=== PATIENT | female | born 2005 | race Caucasian/White ===

== ENCOUNTER 2023-12-19 17:41 | Observation (INO) ==
[2023-12-19] MEDS ORDERED: SODIUM CHLORIDE 0.9% 1,000 ML IV STA (18:11)
[2023-12-19] MEDS ORDERED: ALBUT/IPRATROP 3MG/0.5MG NEB 3 ML VIAL NEB ONE (18:11)
[2023-12-19] MEDS ORDERED: dexAMETHasone**PF** 10 MG/ML VIAL IV ONE (18:11)
[2023-12-19] MEDS ORDERED: MAGNESIUM SULFATE / D5W 1 GM/100 ML BAG IV STA (18:13)
--- NOTE | 2023-12-19 18:22 | Emergency Department Note ---
Impression & Plan Asthma with acute exacerbation ED Provider Note NAME: RAULITO SADLER AGE: 18 SEX: F : 2005 ARRIVES VIA: Walk-In INFORMANT: Patient, ED PROVIDER(S): Augustin Herrera DO CHIEF COMPLAINT: Shortness of breath HPI: The patient is a 18-year-old female who presented to the emergency department for an evaluation of difficulty breathing. The patient has a history of asthma. She states that she started with upper respiratory infection which led to her having multiple exacerbations of asthma. She had multiple visits to the emergency department while she was on [place] break. She started having symptoms 3 days ago. She has been using her inhaler but unfortunately started to worsen. She presented to the emergency department for further evaluation. She does complain of muscle aches and pain. She denies having any leg swelling. She does complain of sore throat and headache. The patient took her nebulizer treatment prior to coming to the emergency department today. She denies having any hemoptysis. ROS: See above HPI for pertinent positives & negatives. A total of 10 systems reviewed and were otherwise negative. PAST MEDICAL HISTORY: See Below PAST SURGICAL HISTORY: See Below FAMILY HISTORY: See Below SOCIAL HISTORY: See Below HOME MEDICATIONS: See Below ALLERGIES: See Below VITALS: See Below PHYSICAL EXAMINATION: GENERAL: Patient is awake alert in no acute distress patient is resting comfortably and showing no signs of anxiety EYES: The conjunctivae are clear. The pupils are round and reactive. EARS, NOSE, MOUTH AND THROAT: The nose is without any evidence of any deformity. Mucous membranes are moist. NECK: The neck is nontender and supple. RESPIRATORY: Diminished breath sounds are noted throughout. There is increased expiratory phase noted. Wheezing was noted in both upper lung whittaker. There is mild conversational dyspnea CARDIOVASCULAR: Regular rate and rhythm noted there no murmurs rubs or gallops normal S1 normal S2. GASTROINTESTINAL: The abdomen is soft. Abdomen is nontender. MUSCULOSKELETAL/EXTREMITIES: There is no evidence of gross deformity full range of motion is noted in the hips and shoulders. SKIN: There is no obvious evidence of any rash. There are no petechiae, pallor or cyanosis noted. There is no calf tenderness NEUROLOGIC: Patient is awake alert and oriented x3 MEDICAL DECISION MAKING: The patient is a 18-year-old female who presented to the emergency department for an evaluation of difficulty breathing. The patient has a history of asthma. The patient was seen multiple times over [facility] for similar episodes. She was treated in the emergency department. She was improved on the previous visits but tonight when she came to our emergency department she seems to have continued symptoms. Her physical exam does appear to be consistent with bronchospasm. She was treated with a bronchodilator as well as steroids. She was reevaluated multiple times. I discussed the patient's laboratory and radiographic studies with her. The patient has continued symptoms especially with exertion. For this reason I discussed her condition with the on-call [facility]. They have agreed to evaluate the patient in the emergency department for further management and disposition. Triage Nursing notes reviewed. Prior medical records reviewed Vital Signs: reviewed and remarkable for tachycardia and elevated blood pressure. Differential diagnosis: Reactive airway disease, pneumonia, pneumothorax, COPD, CHF, infections, cardiac ischemia, pulmonary embolism, musculoskeletal, gastrointestinal, as well as other pathologies. ER treatment provided: See below Diagnostics interpreted by me: ECG: EKG was obtained in the emergency department. My interpretation is sinus tachycardia 109 bpm. There is no ectopy. Nonspecific T wave abnormalities were noted. This was compared to a tracing from December 16, 2021. No changes were noted. Cardiac Monitoring: An order was placed for continuous cardiac monitoring. The monitor shows a rate of 114 bpm with sinus tachycardia. Laboratory studies: As stated above and show below. Imaging studies: See below. Radiographic imaging was reviewed by myself Consultation(s): Dr. Santoyo was on-call for the [facility] group. He was notified about the patient. ED COURSE: Procedures: none Critical Care: I have personally spent greater than 40 minutes of critical care time in the direct management of this patient. This includes bedside care, interpretation of diagnostic studies, and testing, discussion with consultants, patient, and family members, and other required patient management activities. This 40 minutes is in excess of all separately billable procedures. Past Med/Surg History Medical History Asthma Chronic cough Allergic rhinitis with postnasal drip History of COVID-19 COVID Family History Denies family history of Diabetes Heart disease Lung disease Cancer Asthma Social History Smoking Status: Never smoker Hx Alcohol Use: No Hx Substance Use: No Preferred Language: Upper Sorbian Feels Safe at Home: Yes Allergies Allergies Allergy/AdvReac Type Severity Reaction Status Date / Time No Known Allergies Allergy Verified 12/19/23 21:11 Home Meds Home Medications Medication Instructions Recorded Confirmed fluticasone propionate 50 2 spray intranasal DAILY 12/06/21 12/19/23 mcg/actuation nasal spray,suspension guaifenesin 600 mg tablet, 600 mg PO QAM 12/19/23 12/19/23 extended release 12 hr (Mucinex) norgestimate 0.25 mg-ethinyl 1 tab PO QPM 12/19/23 12/19/23 estradiol 35 mcg tablet (Seble) spironolactone 50 mg tablet 50 mg PO BID 12/19/23 12/19/23 Previous Rx's Medication Instructions Recorded albuterol sulfate 0.63 mg/3 mL 0.63 mg (3 mL) inhalation QID PRN 12/24/21 solution for nebulization shortness of breath or wheezing #90 mL albuterol sulfate 90 mcg/actuation 2 puff inhalation Q4 PRN Shortness 12/24/21 aerosol inhaler Of Breath Or Wheezing #8.5 grams Results & Data (ED) Vital Signs Vital Signs - 24 hr 12/19/23 18:00 12/19/23 18:31 12/19/23 18:31 Temperature 36.9 C Temperature Source Temporal Artery Scan Pulse Rate 113 H Pulse Rate [Right Finger] 105 H Respiratory Rate 19 20 Respiratory Effort / Characteristics Non-Labored Spontaneous Spontaneous Respiratory Depth Normal Respiratory Pattern Regular Blood Pressure 142/88 H Blood Pressure Mean 106 Pulse Oximetry 93 92 88 L Oxygen Delivery Method Room Air Room Air Room Air Sepsis Recent Fever Within 48 Hours No Sepsis New/Unexplained Change in Mental Status N/A Sepsis Action Taken by Nursing No Action Required 12/19/23 18:31 12/19/23 18:32 Temperature Temperature Source Pulse Rate 114 H Pulse Rate [Right Finger] Respiratory Rate Respiratory Effort / Characteristics Respiratory Depth Respiratory Pattern Blood Pressure Blood Pressure Mean Pulse Oximetry 88 L 94 Oxygen Delivery Method Room Air Nebulizer Sepsis Recent Fever Within 48 Hours Sepsis New/Unexplained Change in Mental Status Sepsis Action Taken by Halfway Medications Current Medication List: was personally reviewed by me Laboratory Data Attestation: I reviewed the patient's lab results. 12/19/23 18:21 12/19/23 18:21 Lab Results 12/19/23 Range/Units 18:21 WBC 9.77 (4.8-10.8) K/ul RBC 4.63 (4.20-5.40) M/uL Hgb 13.6 (12.0-16.0) g/dl Hct 38.9 (37.0-47.0) % MCV 84.0 (80.0-100.0) fL MCH 29.4 (25.0-34.0) pg MCHC 35.0 (32.0-36.0) g/dL RDW Std Deviation 41.1 (36.4-46.3) fL RDW Coeff of Les 13.3 (11.5-14.5) % Plt Count 252 (130-400) K/uL MPV 9.7 (9.4-12.4) fL Immature Gran % (Auto) 0.2 % Neut % (Auto) 71.7 % Lymph % (Auto) 16.7 % [place] % (Auto) 6.0 % Eos % (Auto) 4.7 % Baso % (Auto) 0.7 % Neut # (Auto) 7.00 H (1.40-6.50) K/uL Lymph # (Auto) 1.63 (1.20-3.40) K/uL [place] # (Auto) 0.59 (0.11-0.59) K/uL Eos # (Auto) 0.46 (0.00-0.50) K/uL Baso # (Auto) 0.07 (0.00-0.20) K/uL Immature Gran # (Auto) 0.02 (0.01-0.20) K/uL Sodium 140 (136-145) mmol/L Potassium 3.5 (3.5-5.1) mmol/L Chloride 109 H (98-107) mmol/L Carbon Dioxide 22 (21-32) mmol/L Anion Gap 9 (3-11) BUN 7 (6-23) mg/dl Creatinine 0.92 (0.6-1.2) mg/dl Est Cr Clr Drug Dosing 80.1 ml/min Est GFR ( Amer) 103.9 ml/min Est GFR (Non-Af Amer) 89.6 ml/min BUN/Creatinine Ratio 7.6 L (10-20) Glucose 95 (70-99(Fasting)) mg/dl Calcium 9.1 (8.6-10.3) mg/dl Troponin I High Sens < 2.3 (0-14) pg/ml HCG, Qual Negative (Negative) Adenovirus (PCR) Not Detected (NotDetected) B. pertussis DNA (PCR) Not Detected (NotDetected) B.parapertussis DNA PCR Not Detected (NotDetected) C. pneumoniae DNA (PCR) Not Detected (NotDetected) Coronavirus OC43 (PCR) Not Detected (NotDetected) Coronavirus HKU1 (PCR) Not Detected (NotDetected) Coronavirus 229E (PCR) Not Detected (NotDetected) SARS-CoV-2 (PCR) Not Detected (NotDetected) Coronavirus NL63 (PCR) Not Detected (NotDetected) Human Metapneumovir PCR Not Detected (NotDetected) Influenza Type A (PCR) Not Detected (NotDetected) Influenza Type B (PCR) Not Detected (NotDetected) M. pneumoniae (PCR) Not Detected (NotDetected) Parainfluenza 1 (PCR) Not Detected (NotDetected) Parainfluenza 2 (PCR) Not Detected (NotDetected) Parainfluenza 3 (PCR) Not Detected (NotDetected) Parainfluenza 4 (PCR) Not Detected (NotDetected) RSV (PCR) Not Detected (NotDetected) Entero/Rhino (PCR) DETECTED A* (NotDetected) Administered Medications Discontinued Medications Albuterol (Albut/Ipratrop 3mg/0.5mg Neb 3 Ml Vial) 12 ml NEB ONE ONE; Protocol Stop: 12/19/23 18:12 Last Admin: 12/19/23 18:31 Dose: 12 ml Documented By: ANSON Dexamethasone Sodium Phosphate (DexamethasonePf 10 Mg/Ml Vial) 10 mg IV NOW ONE Stop: 12/19/23 18:12 Last Admin: 12/19/23 18:27 Dose: 10 mg Documented By: ML Magnesium Sulfate/Dextrose (Magnesium Sulfate / D5w) 1 gm in 100 mls @ 100 mls/hr IV NOW STA Stop: 12/19/23 19:12 Last Infusion: 12/19/23 19:29 Dose: Infused Documented By: Admin: 12/19/23 18:28 Dose: 100 mls/hr Documented By: ML Sodium Chloride (Nss) 1,000 mls @ 999 mls/hr IV .Q1H1M STA Stop: 12/19/23 19:11 Last Infusion: 12/19/23 19:29 Dose: Infused Documented By: Admin: 12/19/23 18:27 Dose: 999 mls/hr Documented By: ML Imaging Data Attestation: I personally reviewed and interpreted this imaging study as follows: My Impression: 1 view chest x-ray was obtained in the emergency department. My interpretation is no free air or definite infiltrate, final report below. Radiologist's Impression: Chest X-Ray 12/19/23 18:11 XR chest 1V portable HISTORY: 18 years-old Female dyspnea acute shortness of breath COMPARISON: 12/16/2021 TECHNIQUE: AP view of the chest FINDINGS: Cardiomediastinal and hilar silhouettes are within normal limits. No pneumothorax, pleural effusion or airspace consolidation. The bones appear grossly intact. IMPRESSION: No acute process. ACT 112: Negative or not required by law. The above report was generated using voice recognition software. It may contain grammatical, syntax or spelling errors. Electronically signed by: Alexander Feliciano M.D. 12/19/2023 6:46 PM Discharge Plan Visit Data Chief Complaint: Asthma Stated Complaint: FLU LAST MONTH, SOB/ASTHMA, WEEZING, SORE THROAT ED Provider: Augustin Herrera Discharge Problem: Asthma with acute exacerbation Patient Disposition: Being Evaluated by Hospitalist Forms Stand Alone Forms: My [facility] Prescriptions Prescriptions: No Action albuterol sulfate 90 mcg/actuation HFA aerosol inhaler 2 puff INHALATION Q4 PRN (Reason: Shortness Of Breath Or Wheezing) Qty: 8.5 3RF albuterol sulfate 0.63 mg/3 mL solution for nebulization 0.63 mg inhalation QID PRN (Reason: shortness of breath or wheezing) Qty: 90 3RF fluticasone propionate 50 mcg/actuation spray,suspension 2 spray INTRANASAL DAILY norgestimate-ethinyl estradiol [Seble] 0.25-35 mg-mcg Tablet 1 tab PO QPM spironolactone 50 mg Tablet 50 mg PO BID guaifenesin [Mucinex] 600 mg Tablet Extended Release 12hr 600 mg PO QAM Referrals Referrals: Garrison Kirkland CRNP [Outside Practitioners] - Discharge Problem: Asthma with acute exacerbation Qualifiers: Asthma severity: moderate Asthma persistence: unspecified Qualified Code(s): J 45.901 - Unspecified asthma with (acute) exacerbation
[2023-12-19 18:47] LABS: Basophils # (auto) 0.07 K/uL (0.00-0.20); Basophils % (auto) 0.7 %; Eosinophils # (auto) 0.46 K/uL (0.00-0.50); Eosinophils % (auto) 4.7 %; Hematocrit (blood only) 38.9 % (37.0-47.0); Hemoglobin 13.6 g/dl (12.0-16.0); Immature Granulocytes # (auto) 0.02 K/uL (0.01-0.20); Immature Granulocytes % (auto) 0.2 %; Lymphocytes # (auto) 1.63 K/uL (1.20-3.40); Lymphocytes % (auto) 16.7 %; Mean Corpuscular Hemoglobin 29.4 pg (25.0-34.0); Mean Platelet Volume 9.7 fL (9.4-12.4); Monocytes # (auto) 0.59 K/uL (0.11-0.59); Neutrophils % (auto) 71.7 %; Platelet Count 252 K/uL (130-400); RDW Coefficient of Variation 13.3 % (11.5-14.5); RDW Standard Deviation 41.1 fL (36.4-46.3); Red Blood Count 4.63 M/uL (4.20-5.40); White Blood Count 9.77 K/ul (4.8-10.8)
--- NOTE | 2023-12-19 18:48 | XRay Report ---
XR chest 1V portable HISTORY: 18 years-old Female dyspnea acute shortness of breath COMPARISON: 12/16/2021 TECHNIQUE: AP view of the chest FINDINGS: Cardiomediastinal and hilar silhouettes are within normal limits. No pneumothorax, pleural effusion o r airspace consolidation. The bones appear grossly intact. IMPRESSION: No acute process. ACT 112: Negative or not required by law. The above report was generated using voice recognition software. It may contain grammatical, syntax o r spelling errors. Electronically signed by: Alexander Feliciano M.D. 12/19/2023 6:46 PM
[2023-12-19 19:01] LABS: Anion Gap 9 (3-11); BUN Creatinine Ratio 7.6 (10-20); Blood Urea Nitrogen 7 mg/dl (6-23); Calcium 9.1 mg/dl (8.6-10.3); Carbon Dioxide 22 mmol/L (21-32); Chloride 109 mmol/L (98-107); Creatinine Clr Calc Pharmacy 80.1 ml/min; Est GFR (African American) 103.9 ml/min; Est GFR (Non-African American) 89.6 ml/min; Glucose 95 mg/dl (70-99(Fasting)); Potassium 3.5 mmol/L (3.5-5.1); Sodium 140 mmol/L (136-145)
[2023-12-19 19:05] LABS: Pregnancy Test, Serum Negative (Negative)
[2023-12-19 19:07] LABS: Troponin I High Sensitivity < 2.3 pg/ml (0-14)
[2023-12-19 19:29] LABS: Adenovirus PCR Not Detected (NotDetected); Bordetella parapertussis PCR Not Detected (NotDetected); Bordetella pertussis PCR Not Detected (NotDetected); Chlamydia pneumoniae PCR Not Detected (NotDetected); Coronavirus 229E PCR Not Detected (NotDetected); Coronavirus CoV-2 (COVID19)PCR Not Detected (NotDetected); Coronavirus HKU1 PCR Not Detected (NotDetected); Coronavirus NL63 PCR Not Detected (NotDetected); Coronavirus OC43PCR Not Detected (NotDetected); Human Metapneumovirus PCR Not Detected (NotDetected); Influenza A PCR Not Detected (NotDetected); Influenza B PCR Not Detected (NotDetected); Mycoplasma pneumoniae PCR Not Detected (NotDetected); Parainfluenza Virus 1 PCR Not Detected (NotDetected); Parainfluenza Virus 2 PCR Not Detected (NotDetected); Parainfluenza Virus 3 PCR Not Detected (NotDetected); Parainfluenza Virus 4 PCR Not Detected (NotDetected); Respiratory Syncytial VirusPCR Not Detected (NotDetected)
[2023-12-19 19:45] LABS: Rhinovirus/Enterovirus PCR DETECTED (NotDetected)
[2023-12-19] MEDS ORDERED: AZITHROMYCIN 500 MG in DEXTROSE 5% 250 ML IV STA (21:38)
[2023-12-19] MEDS ORDERED: ALBUT/IPRATROP 3MG/0.5MG NEB 3 ML VIAL NEB STA (21:38)
[2023-12-19] MEDS ORDERED: guaiFENesin 600 MG TABCR PO ONE (21:39)
--- NOTE | 2023-12-19 21:43 | History & Physical Report ---
Date of Service December 19, 2023 Assessment & Plan (1) Asthma with acute exacerbation: (2) Allergic rhinitis with postnasal drip: (3) Chronic cough: (4) Upper airway cough syndrome: (5) Acute bronchitis due to Rhinovirus: (6) History of influenza: (7) History of COVID-19: (8) Eosinophilia: Plan Asthma with acute exacerbation/current rhinovirus infection/influenza 11-09-2023/COVID-19 /history of eosinophilia/upper airway cough syndrome/allergic rhinitis- Patient with recurrent infections, unclear if she has cleared any of these previous infections completely and been back to baseline She just completed 2 courses of antibiotics and prednisone while at home over [place] break Present testing for [employer] is positive for rhinovirus/enterovirus She was seen by pulmonology Dr. Peralta on 12/16/2021, and at that time was on Wixela, Singulair, fexofenadine and Flonase From the ED she received the followin mL DuoNeb, dexamethasone 10 mg IV, magnesium sulfate 1 g IV and normal saline 1 L Continue Flonase Start Singulair 10 mg every morning, Loratadine 10 mg every morning, Pulmicort Respules 0.5 mg inhaled twice daily, Increase guaifenesin to 1200 mg p.o. twice daily from 1 600 mg every morning DuoNebs 4 times daily, and every 2 hours as needed Azithromycin 500 mg IV daily Methylprednisolone 40 mg IV every 8 hours Send RAST testing for [place] panel and food panel Consult Dr. Peralta Low phosphorus- Phosphorus 1.0 K-Phos 30 mmol IV x 1 History of Present Illness Chief Complaint: The patient presents to the emergency department with complaint of worsening difficulty breathing over the past 3 days, after finishing 2 courses of prednisone and antibiotics Primary Care Provider: [facility] The patient is a 18-year-old female with a past medical history including allergic rhinitis with postnasal drip, chronic cough, asthma, upper airway cough syndrome, eosinophilia, COVID-19 12/18, influenza virus infection 11/09/2023. She reports that over [place] break while at home she was in the emergency department there several times, has just completed 2 courses of prednisone and antibiotics. After 3 days off of these medications, her breathing has worsened again. In the emergency department this evening [employer] testing was positive for rhinovirus. She reports some improvement in symptoms after emergency department treatment with hour-long DuoNeb, dexamethasone 10 mg IV, magnesium sulfate 1 g IV and normal saline 1 L IV fluid bolus Allergies Allergy/AdvReac Type Severity Reaction Status Date / Time No Known Allergies Allergy Verified 12/19/23 21:11 Home Medications Medication Instructions Recorded Confirmed Type fluticasone propionate 50 2 spray intranasal DAILY 12/06/21 12/19/23 History mcg/actuation nasal spray,suspension albuterol sulfate 0.63 mg/3 mL 0.63 mg (3 mL) inhalation QID PRN 12/24/21 12/19/23 Rx solution for nebulization shortness of breath or wheezing #90 mL albuterol sulfate 90 mcg/actuation 2 puff inhalation Q4 PRN Shortness 12/24/21 12/19/23 Rx aerosol inhaler Of Breath Or Wheezing #8.5 grams guaifenesin 600 mg tablet, 600 mg PO QAM 12/19/23 12/19/23 History extended release 12 hr (Mucinex) norgestimate 0.25 mg-ethinyl 1 tab PO QPM 12/19/23 12/19/23 History estradiol 35 mcg tablet (Seble) spironolactone 50 mg tablet 50 mg PO BID 12/19/23 12/19/23 History Past Med/Surg History Medical History (Updated 12/20/23 @ 04:52 by Dewayne Krueger MD) Eosinophilia Asthma Chronic cough Allergic rhinitis with postnasal drip History of COVID-19 COVID Family History Denies family history of Diabetes Heart disease Lung disease Cancer Asthma Social History Smoking Status: Never smoker Second Hand Exposure: No; Do You Dip or Chew Tobacco: No; Hx Alcohol Use: No Hx Substance Use: No Preferred Language: Malay Communication Ability: Effective Supervising Editor Trailer Required: No Beliefs That Will Affect Care: None Current Living Situation: Alone Other Information That Helps Us Care for You: No Feels Safe at Home: Yes Safety Concerns: Feels Safe At This Time Review of Systems Review of Systems: The patient denies chest pain, palpitations, lower extremity swelling, fevers, chills, sweats, weight change, fatigue, nausea, vomiting, diarrhea , constipation, abdominal pain, pelvic pain, blood in urine or stool, dysuria, urinary frequency or urgency, lightheadedness, dizziness, headache, memory loss, loss of consciousness, rash, abnormal bruising or bleeding, imbalance, focal or generalized weakness, numbness or tingling in arms or legs, generalized arthralgias or myalgias, back or neck pain, or night sweats. The review of systems is otherwise negative other than for that already noted above, and at least 10 systems have been reviewed. Physical Exam Physical Exam: The patient is awake, alert and oriented 3, well developed and well nourished, normocephalic and atraumatic, lying in bed and in no acute distress. HEENT--PERRL, EOMI, mucous membranes and oropharynx normal Neck--supple. No JVD. No bruits. Thyroid normal, trachea midline, no ad enopathy. Heart--normal S1 and S2. No murmurs, rubs or gallops. Lungs--expiratory wheezes bilaterally, with coarse breath sound. no respiratory distress, no accessory muscle use. Abdomen--normal bowel sounds and soft. Nontender. Nondistended, no hernias or masses, no organomegaly. Extremities--no cyanosis or clubbing. No edema. Dermatologic--normal skin turgor, normal color, no abnormal lymph nodes, no rash. Neurologic--cranial nerves II through XII grossly intact. Rheumatologic--normal range of motion. Psychiatric--normal affect. Results & Data Results & Data Vital Signs (Past 12 Hours) Vital Signs Temp Pulse Pulse Resp BP Pulse Ox O2 Del Method 12/19/23 18:32 94 Nebulizer 12/19/23 18:31 114 H 88 L Room Air 12/19/23 18:31 88 L Room Air 12/19/23 18:31 105 H 20 92 Room Air 12/19/23 18:00 36.9 C 113 H 19 142/88 H 93 Room Air Laboratory Results Laboratory Results WBC 8.17 K/ul (4.8-10.8) 12/20/23 03:19 RBC 4.26 M/uL (4.20-5.40) 12/20/23 03:19 Hgb 12.6 g/dl (12.0-16.0) 12/20/23 03:19 Hct 36.6 % (37.0-47.0) L 12/20/23 03:19 MCV 85.9 fL (80.0-100.0) 12/20/23 03:19 MCH 29.6 pg (25.0-34.0) 12/20/23 03:19 MCHC 34.4 g/dL (32.0-36.0) 12/20/23 03:19 RDW Std Deviation 42.5 fL (36.4-46.3) 12/20/23 03:19 RDW Coeff of Les 13.7 % (11.5-14.5) 12/20/23 03:19 Plt Count 236 K/uL (130-400) 12/20/23 03:19 MPV 9.8 fL (9.4-12.4) 12/20/23 03:19 Immature Gran % (Auto) 0.2 % 12/20/23 03:19 Neut % (Auto) 90.8 % 12/20/23 03:19 Lymph % (Auto) 7.0 % 12/20/23 03:19 [place] % (Auto) 1.8 % 12/20/23 03:19 Eos % (Auto) 0.0 % 12/20/23 03:19 Baso % (Auto) 0.2 % 12/20/23 03:19 Neut # (Auto) 7.41 K/uL (1.40-6.50) H 12/20/23 03:19 Lymph # (Auto) 0.57 K/uL (1.20-3.40) L 12/20/23 03:19 [place] # (Auto) 0.15 K/uL (0.11-0.59) 12/20/23 03:19 Eos # (Auto) 0.00 K/uL (0.00-0.50) 12/20/23 03:19 Baso # (Auto) 0.02 K/uL (0.00-0.20) 12/20/23 03:19 Immature Gran # (Auto) 0.02 K/uL (0.01-0.20) 12/20/23 03:19 Sodium 136 mmol/L (136-145) 12/20/23 03:19 Potassium 3.9 mmol/L (3.5-5.1) 12/20/23 03:19 Chloride 110 mmol/L (98-107) H 12/20/23 03:19 Carbon Dioxide 19 mmol/L (21-32) L 12/20/23 03:19 Anion Gap 7 (3-11) 12/20/23 03:19 BUN 8 mg/dl (6-23) 12/20/23 03:19 Creatinine 0.83 mg/dl (0.6-1.2) 12/20/23 03:19 Est Cr Clr Drug Dosing 88.8 ml/min 12/20/23 03:19 Est GFR ( Amer) 117.7 ml/min 12/20/23 03:19 Est GFR (Non-Af Amer) 101.5 ml/min 12/20/23 03:19 BUN/Creatinine Ratio 9.6 (10-20) L 12/20/23 03:19 Glucose 203 mg/dl (70-99(Fasting)) H 12/20/23 03:19 Calcium 9.0 mg/dl (8.6-10.3) 12/20/23 03:19 Phosphorus 1.0 mg/dl (2.5-4.9) L* 12/20/23 03:19 Magnesium 2.1 mg/dl (1.7-2.4) 12/20/23 03:19 Troponin I High Sens < 2.3 pg/ml (0-14) 12/19/23 18:21 Albumin 3.9 gm/dl (3.4-5.0) 12/20/23 03:19 HCG, Qual Negative (Negative) 12/19/23 18:21 Adenovirus (PCR) Not Detected (NotDetected) 12/19/23 18:21 B. pertussis DNA (PCR) Not Detected (NotDetected) 12/19/23 18:21 B.parapertussis DNA PCR Not Detected (NotDetected) 12/19/23 18:21 C. pneumoniae DNA (PCR) Not Detected (NotDetected) 12/19/23 18:21 Coronavirus OC43 (PCR) Not Detected (NotDetected) 12/19/23 18:21 Coronavirus HKU1 (PCR) Not Detected (NotDetected) 12/19/23 18:21 Coronavirus 229E (PCR) Not Detected (NotDetected) 12/19/23 18:21 SARS-CoV-2 (PCR) Not Detected (NotDetected) 12/19/23 18:21 Coronavirus NL63 (PCR) Not Detected (NotDetected) 12/19/23 18:21 Human Metapneumovir PCR Not Detected (NotDetected) 12/19/23 18:21 Influenza Type A (PCR) Not Detected (NotDetected) 12/19/23 18:21 Influenza Type B (PCR) Not Detected (NotDetected) 12/19/23 18:21 M. pneumoniae (PCR) Not Detected (NotDetected) 12/19/23 18:21 Parainfluenza 1 (PCR) Not Detected (NotDetected) 12/19/23 18:21 Parainfluenza 2 (PCR) Not Detected (NotDetected) 12/19/23 18:21 Parainfluenza 3 (PCR) Not Detected (NotDetected) 12/19/23 18:21 Parainfluenza 4 (PCR) Not Detected (NotDetected) 12/19/23 18:21 RSV (PCR) Not Detected (NotDetected) 12/19/23 18:21 Entero/Rhino (PCR) DETECTED (NotDetected) A* 12/19/23 18:21 Impressions Chest X-Ray 12/19/23 18:11 XR chest 1V portable HISTORY: 18 years-old Female dyspnea acute shortness of breath COMPARISON: 12/16/2021 TECHNIQUE: AP view of the chest FINDINGS: Cardiomediastinal and hilar silhouettes are within normal limits. No pneumothorax, pleural effusion or airspace consolidation. The bones appear grossly intact. IMPRESSION: No acute process. ACT 112: Negative or not required by law. The above report was generated using voice recognition software. It may contain grammatical, syntax or spelling errors. Electronically signed by: Alexander Feliciano M.D. 12/19/2023 6:46 PM Code Status & VTE Plan Code Status Full code VTE Prophylaxis Plan VTE Prophylaxis will be ordered: Yes PG Care Time/CCT Total # of Minutes Spent Total Time Spent with Patient: Total time spent is greater than 50% in coordination of care (as documented) at patient's floor/unit and/or counseling patient: Coding Level of Care Code 75101 INT INP/OBS CARE Diagnoses Asthma with acute exacerbation J45.901 Asthma persistence: unspecified Asthma severity: moderate Allergic rhinitis with postnasal drip J30.9; R09.82 Chronic cough R05.3 Upper airway cough syndrome R05.8 Acute bronchitis due to Rhinovirus J20.6 History of influenza Z87.09 History of COVID-19 Z86.16 Eosinophilia D72.10 (1) Asthma with acute exacerbation Asthma persistence: unspecified Asthma severity: moderate Qualified Code(s): J45.901 - Unspecified asthma with (acute) exacerbation
[2023-12-19] MEDS ORDERED: LORATADINE 10 MG TAB PO ONE (21:45)
[2023-12-19] MEDS ORDERED: BUDESONIDE 0.5 MG/2 ML VIAL (PULMICORT) NEB ONE (21:45)
[2023-12-20] MEDS ORDERED: ACETAMINOPHEN 325 MG TAB PO PRN (00:06)
[2023-12-20] MEDS ORDERED: ONDANSETRON INJ 2 MG/ML 2 ML VIAL IV PRN (00:06)
[2023-12-20] MEDS: ALBUT/IPRATROP 3MG/0.5MG NEB 3 ML VIAL NEB PRN ×2 (02:53→20:05)
[2023-12-20 03:45] LABS: Albumin Level 3.9 gm/dl (3.4-5.0); Magnesium 2.1 mg/dl (1.7-2.4); Potassium 3.9 mmol/L (3.5-5.1)
[2023-12-20 03:46] LABS: Hematocrit (blood only) 36.6 % (37.0-47.0); Hemoglobin 12.6 g/dl (12.0-16.0); Mean Corpuscular Hemoglobin 29.6 pg (25.0-34.0); Mean Corpuscular Hgb Conc 34.4 g/dL (32.0-36.0); Mean Corpuscular Volume 85.9 fL (80.0-100.0); Mean Platelet Volume 9.8 fL (9.4-12.4); Platelet Count 236 K/uL (130-400); RDW Coefficient of Variation 13.7 % (11.5-14.5); RDW Standard Deviation 42.5 fL (36.4-46.3); Red Blood Count 4.26 M/uL (4.20-5.40); White Blood Count 8.17 K/ul (4.8-10.8)
[2023-12-20 03:51] LABS: BUN Creatinine Ratio 9.6 (10-20); Creatinine Clr Calc Pharmacy 88.8 ml/min; Est GFR (African American) 117.7 ml/min; Est GFR (Non-African American) 101.5 ml/min
[2023-12-20 04:08] LABS: Basophils # (auto) 0.02 K/uL (0.00-0.20); Basophils % (auto) 0.2 %; Immature Granulocytes # (auto) 0.02 K/uL (0.01-0.20); Immature Granulocytes % (auto) 0.2 %; Lymphocytes # (auto) 0.57 K/uL (1.20-3.40); Monocytes # (auto) 0.15 K/uL (0.11-0.59); Monocytes % (auto) 1.8 %; Neutrophils # (auto) 7.41 K/uL (1.40-6.50); Neutrophils % (auto) 90.8 %
[2023-12-20] MEDS ORDERED: POTASSIUM PHOS 3 MMOL/1 ML INFUSION IV STA (04:14)
[2023-12-20] MEDS ORDERED: POTASSIUM PHOSPHATE 30 MMOL in SODIUM CHLORIDE 0.9% 500 ML IV ONE (04:45)
[2023-12-20] MEDS ORDERED: BUDESONIDE 0.5 MG/2 ML VIAL (PULMICORT) NEB SCH (07:00)
[2023-12-20] MEDS: ALBUT/IPRATROP 3MG/0.5MG NEB 3 ML VIAL NEB SCH ×4 (07:07→23:05)
--- NOTE | 2023-12-20 07:30 | Hospitalist Progress Note ---
Date of Service December 20, 2023 Assessment & Plan (1) Asthma with acute exacerbation: Plan: Asthma with acute exacerbation/current rhinovirus infection-> bronchitis due to rhinovirus influenza 11-09-2023/COVID-19 history of eosinophilia/upper airway cough syndrome/allergic rhinitis- She just completed 2 courses of antibiotics and prednisone while at home over Yusra break DuoNebs 4 times daily, and every 2 hours as needed added back her long-acting steroid and LABA on 12/20 Azithromycin 500 mg IV daily Methylprednisolone tapered oral prednisone on 12/21/2023 Continue Flonase Continue Singulair 10 mg every morning, Loratadine 10 mg every morning, Saline nebulized medications Increase guaifenesin to 1200 mg p.o. twice daily from 1 600 mg every morning Send RAST testing for [place] panel and food panel Consult Dr. Vargas will follow-up Dr. vargas in the outpatient setting Plan Low phosphorus- Phosphorus 1.0 K-Phos 30 mmol IV x 1 Admission and Anticipated Discharge Date Admission Date: December 19, 2023 Subjective pt states she feels about 75% of baseline, she has some cough, no fever did see pulmonary med today, taper steroids, restart preventative inhaler, continue Singulair Physical Exam Physical Exam: Lungs good air movement there are some coarse breath sounds she is clear there is no wheezes Her card exam is regular Results & Data Results & Data Vital Signs (Past 12 Hours) Vital Signs Temp Pulse Pulse Resp BP Pulse Ox O2 Del Method 12/20/23 07:09 107 H 18 97 Room Air 12/20/23 04:00 Room Air 12/20/23 04:00 98.2 F 115 H 18 121/77 96 Room Air 12/20/23 03:02 80 20 94 Room Air 12/20/23 01:32 117 H Laboratory Results Reviewed CBC Reviewed chemistry PG Care Time/CCT Total # of Minutes Spent Total Time Spent with Patient: Total time spent is greater than 50% in coordination of care (as documented) at patient's floor/unit and/or counseling patient: Coding Level of Care Code 80941 SUB INP/OBS CARE 2/35MIN Diagnoses Asthma with acute exacerbation J45.901 Asthma persistence: unspecified Asthma severity: moderate (1) Asthma with acute exacerbation Asthma persistence: unspecified Asthma severity: moderate Qualified Code(s): J45.901 - Unspecified asthma with (acute) exacerbation
--- NOTE | 2023-12-20 07:30 | Pulmonary Consultation ---
Date of Consultation December 20, 2023 Assessment & Plan (1) Eosinophilia: (2) Acute bronchitis due to Rhinovirus: (3) Upper airway cough syndrome: (4) Asthma with acute exacerbation: Asthma persistence: unspecified Asthma severity: moderate Qualified Code(s): J45.901 - Unspecified asthma with (acute) exacerbation (5) Allergic rhinitis with postnasal drip: Plan Chest x-ray 12/19/2023 personally reviewed: Portable film, good inspiratory effort, bilateral costophrenic and cardiophrenic angles are clean, no clear lung infiltrate appreciated -- Asthma exacerbation Likely second to RSV infection Not on any maintenance inhalers right now Continue with montelukast Absolute eosinophil count 460 Bio fire negative for everything except for RSV RAST panel and IgE has been ordered by the primary team Do think she is good to benefit from Biologics going forward -- Upper airway cough syndrome Patient with significant eosinophilia, exposure to mold and wheezing occasional does put her in the spectrum of asthmatic bronchitis Allergic rhinitis is also playing a role --Allergic rhinitis with postnasal drip Continue with fexofenadine and Flonase on a daily basis for the time being Plan: Decrease Solu-Medrol to 40 mg twice daily Add hypertonic saline nebulized, continue with Mucinex and flutter valve Will benefit from maintenance inhaler like Breo 100 or Symbicort 80-4.5, 2 puffs twice a day along with Singulair All questions and queries of the patient as well as patient's mother were answered in depth Please note the above document was generated using voice recognition software. It may contain grammatical, syntax or spelling errors.Any formal questions or concerns about the content, text or information contained within the body of this dictation should be directly addressed to the provider for clarification. History of Present Illness Attending Physician: Tommie Layton MD History of Present Illness 18-year-old female coming to the hospital for shortness of breath Past medical history: Asthma, GERD Patient was last seen by me in the office on 12/24/2021 Pulmonary consulted for shortness of breath Patient's mother was in the room at the time of examination Patient has been having issues with her breathing going back to October when she was diagnosed with flu. She had relentless cough which is associated with chest tightness as well as wheezing. She did try Z-Hank along with prednisone and Mucinex but it did not improve She came to the ER with the same complaint and she was found to be positive for RSV Denies any dysuria, or diarrhea Does complain of occasional headache, no blurry vision No nausea vomiting When she does bring up phlegm is mostly clear Does have difficulty bringing up the phlegm Social history: Non-smoker, no illicit drug use, social alcohol. 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 No birds or poultry nearby Allergies: Seasonal. Takes [id number] medications for it Asthma: No personal or family history of asthma Lung cancer: No history of lung cancer in the family Allergies Allergy/AdvReac Type Severity Reaction Status Date / Time No Known Allergies Allergy Verified 12/19/23 21:11 Home Medications Medication Instructions Recorded Confirmed Type fluticasone propionate 50 2 spray intranasal DAILY 12/06/21 12/19/23 History mcg/actuation nasal spray,suspension albuterol sulfate 0.63 mg/3 mL 0.63 mg (3 mL) inhalation QID PRN 12/24/21 12/19/23 Rx solution for nebulization shortness of breath or wheezing #90 mL albuterol sulfate 90 mcg/actuation 2 puff inhalation Q4 PRN Shortness 12/24/21 12/19/23 Rx aerosol inhaler Of Breath Or Wheezing #8.5 grams guaifenesin 600 mg tablet, 600 mg PO QAM 12/19/23 12/19/23 History extended release 12 hr (Mucinex) norgestimate 0.25 mg-ethinyl 1 tab PO QPM 12/19/23 12/19/23 History estradiol 35 mcg tablet ([place]) spironolactone 50 mg tablet 50 mg PO BID 12/19/23 12/19/23 History Patient History Medical History (Updated 12/20/23 @ 04:52 by Dewayne Krueger MD) Eosinophilia Asthma Chronic cough Allergic rhinitis with postnasal drip History of COVID-19 COVID Family History Denies family history of Diabetes Heart disease Lung disease Cancer Asthma Social History Smoking Status: Never smoker Second Hand Exposure: No; Do You Dip or Chew Tobacco: No; Hx Alcohol Use: No Hx Substance Use: No Preferred Language: Cuban Communication Ability: Effective Business Account Leader Required: No Beliefs That Will Affect Care: None Current Living Situation: Alone Other Information That Helps Us Care for You: No Feels Safe at Home: Yes Safety Concerns: Feels Safe At This Time Assistive Devices: None Review of Systems 2 Review of Systems: All systems reviewed & are unremarkable except as noted in HPI & below Physical Exam 2 Physical Exam: Constitutional: No acute distress HEENT: EOMI, PERRLA Respiratory system: Good air entry bilaterally, no wheeze, minimal rhonchi, no crackles CVS: S1-S2 positive, no murmurs or gallops, tachycardia Abdomen: Soft, nontender, nondistended, positive bowel sounds x4 Extremities: +2 pulses bilaterally radialis/ dorsalis pedis, no cyanosis, no edema Neuro: Awake alert oriented x3 Psych: Normal mood and affect G/U: No Fabian Skin: no rashes, warm and dry Lymphatic: no cervical or axillary lymphadenopathy Results & Data Results & Data Vital Signs (Past 12 Hours) Vital Signs Temp Pulse Pulse Resp BP Pulse Ox O2 Del Method 12/20/23 07:09 107 H 18 97 Room Air 12/20/23 04:00 Room Air 12/20/23 04:00 36.8 C 115 H 18 121/77 96 Room Air 12/20/23 03:02 80 20 94 Room Air 12/20/23 01:32 117 H Laboratory Results 12/20/23 03:19 12/20/23 03:19 PG Care Time/CCT Total # of Minutes Spent Total Time Spent with Patient: Total time spent is greater than 50% in coordination of care (as documented) at patient's floor/unit and/or counseling patient: Coding Level of Care Code 79846 INT INP/OBS CARE 3/75MIN Diagnoses Eosinophilia D72.10 Acute bronchitis due to Rhinovirus J20.6 Upper airway cough syndrome R05.8 Asthma with acute exacerbation J45.901 Asthma persistence: unspecified Asthma severity: moderate Allergic rhinitis with postnasal drip J30.9; R09.82
[2023-12-20] MEDS: FLUTICASONE PROPIONATE NA SPR 16 GM BTL NAE SCH (07:42)
[2023-12-20] MEDS: guaiFENesin 600 MG TABCR PO SCH ×2 (07:42→21:23)
[2023-12-20] MEDS: SPIRONOLACTONE 25 MG TAB PO SCH ×2 (07:42→17:19)
[2023-12-20] MEDS: LORATADINE 10 MG TAB PO SCH (07:43)
[2023-12-20] MEDS: MONTELUKAST SODIUM 10 MG TABLET PO SCH (07:46)
[2023-12-20] MEDS ORDERED: methylPREDNISolone 40 MG in SYRINGE 0 ML IV SCH ×2 (08:00→21:00)
--- NOTE | 2023-12-20 11:21 | Electrocardiogram Report ---
Test Reason : Blood Pressure : / mmHG Vent. Rate : 109 BPM Atrial Rate : 109 BPM P-R Int : 126 ms QRS Dur : 078 ms QT Int : 314 ms P-R-T Axes : 061 043 000 degrees QTc Int : 422 ms Sinus tachycardia Possible Left atrial enlargement Abnormal ECG When compared with ECG of 16-DEC-2021 11:33, Nonspecific T wave abnormality, worse in Anterior leads Confirmed by Rui Aponte ([id number]) on 12/20/2023 11:21:22 AM Referred By: REFERRED SELF Confirmed By:Pelon Aponte
[2023-12-20] MEDS: FLUTICASONE/VILANTEROL 200/25MCG 14 PUFFS/INHALER INH SCH (17:09)
[2023-12-20] MEDS: SODIUM CHLOR 7% 4 ML NEB NEB SCH (20:05)
[2023-12-20] MEDS ORDERED: AZITHROMYCIN 500 MG in DEXTROSE 5% 250 ML IV SCH (21:00)
[2023-12-20] MEDS ORDERED: hydrOXYzine HCl 25 MG TAB PO STA (22:37)
[2023-12-21] MEDS ORDERED: LORazepam 0.5 MG in SYRINGE 0.25 ML IV STA (00:51)
[2023-12-21 06:40] LABS: Hematocrit (blood only) 38.2 % (37.0-47.0); Hemoglobin 12.6 g/dl (12.0-16.0); Mean Corpuscular Hemoglobin 29.2 pg (25.0-34.0); Mean Corpuscular Volume 88.4 fL (80.0-100.0); Mean Platelet Volume 10.3 fL (9.4-12.4); Platelet Count 247 K/uL (130-400); RDW Coefficient of Variation 14.6 % (11.5-14.5); RDW Standard Deviation 46.8 fL (36.4-46.3); Red Blood Count 4.32 M/uL (4.20-5.40); White Blood Count 17.94 K/ul (4.8-10.8)
[2023-12-21 07:02] LABS: Basophils # (auto) 0.02 K/uL (0.00-0.20); Basophils % (auto) 0.1 %; Immature Granulocytes # (auto) 0.09 K/uL (0.01-0.20); Immature Granulocytes % (auto) 0.5 %; Lymphocytes # (auto) 0.83 K/uL (1.20-3.40); Lymphocytes % (auto) 4.6 %; Monocytes % (auto) 2.2 %; Neutrophils % (auto) 92.6 %
[2023-12-21 07:10] LABS: Albumin Level 3.9 gm/dl (3.4-5.0); BUN Creatinine Ratio 19.1 (10-20); Calcium 9.4 mg/dl (8.6-10.3); Creatinine Clr Calc Pharmacy 110.2 ml/min; Est GFR (African American) 145.9 ml/min; Est GFR (Non-African American) 125.9 ml/min; Phosphorus 3.9 mg/dl (2.5-4.9); Potassium 4.7 mmol/L (3.5-5.1)
[2023-12-21] MEDS: SODIUM CHLOR 7% 4 ML NEB NEB SCH (07:31)
[2023-12-21] MEDS: ALBUT/IPRATROP 3MG/0.5MG NEB 3 ML VIAL NEB SCH (07:31)
--- NOTE | 2023-12-21 07:48 | Pulmonology Progress Note ---
Date of Service December 21, 2023 Assessment & Plan (1) Eosinophilia: (2) Acute bronchitis due to Rhinovirus: (3) Upper airway cough syndrome: (4) Asthma with acute exacerbation: Asthma persistence: unspecified Asthma severity: moderate Qualified Code(s): J45.901 - Unspecified asthma with (acute) exacerbation (5) Allergic rhinitis with postnasal drip: Plan Chest x-ray 12/19/2023 personally reviewed: Portable film, good inspiratory effort, bilateral costophrenic and cardiophrenic angles are clean, no clear lung infiltrate appreciated -- Asthma exacerbation Likely second to RSV infection Not on any maintenance inhalers right now Continue with montelukast Absolute eosinophil count 460 Bio fire negative for everything except for RSV RAST panel and IgE has been ordered by the primary team Do think she is good to benefit from Biologics going forward -- Upper airway cough syndrome Patient with significant eosinophilia, exposure to mold and wheezing occasional does put her in the spectrum of asthmatic bronchitis Allergic rhinitis is also playing a role --Allergic rhinitis with postnasal drip Continue with fexofenadine and Flonase on a daily basis for the time being Plan: Taper prednisone off over the next 5-7 days Continue with hypertonic saline nebulized, Mucinex and flutter valve even at home Recommend maintenance inhaler like Breo 100 or Symbicort 80-4.5, 2 puffs twice a day along with Singulair Follow-up RAST panel and IgE to see if patient will be a candidate for biologic No further recommendation from pulmonary perspective, will sign off Please call directly with any questions Please note the above document was generated using voice recognition software. It may contain grammatical, syntax or spelling errors.Any formal questions or concerns about the content, text or information contained within the body of this dictation should be directly addressed to the provider for clarification. Admission and Anticipated Discharge Date Admission Date: December 19, 2023 Subjective Patient seen and examined at bedside. No acute distress. Overnight patient had some issues with infiltration of antibiotic Breathing hodge she is doing well. No wheezing. Occasional cough with clear phlegm. No hemoptysis Chest tightness is improved. Fair appetite, no nausea or vomiting. Patient's mother was in the room at the time of examination Review of Systems 2 Review of Systems: All systems reviewed & are unremarkable except as noted in Subjective Physical Exam 2 Physical Exam: Constitutional: No acute distress HEENT: EOMI, PERRLA Respiratory system: Good air entry bilaterally, no wheeze, no rhonchi, no crackles CVS: S1-S2 positive, no murmurs or gallops, tachycardia Abdomen: Soft, nontender, nondistended, positive bowel sounds x4 Extremities: +2 pulses bilaterally radialis/ dorsalis pedis, no cyanosis, no edema Neuro: Awake alert oriented x3 Psych: Normal mood and affect G/U: No Fabian Skin: no rashes, warm and dry Lymphatic: no cervical or axillary lymphadenopathy Results & Data Results & Data Vital Signs (Past 12 Hours) Vital Signs Temp Pulse Resp BP Pulse Ox Pulse Ox O2 Del Method 12/21/23 07:32 82 15 97 Room Air 12/20/23 22:14 36.8 C 101 H 22 103/64 98 Room Air 12/20/23 21:23 Room Air 12/20/23 21:23 96 12/20/23 20:07 105 H 18 96 Room Air O2 Del Method FiO2 12/21/23 07:32 21 12/20/23 22:14 12/20/23 21:23 12/20/23 21:23 Room Air 12/20/23 20:07 Laboratory Results 12/21/23 05:42 12/21/23 05:42 PG Care Time/CCT Total # of Minutes Spent Total Time Spent with Patient: Total time spent is greater than 50% in coordination of care (as documented) at patient's floor/unit and/or counseling patient: Coding Level of Care Code 05248 SUB INP/OBS CARE 2/35MIN Diagnoses Eosinophilia D72.10 Acute bronchitis due to Rhinovirus J20.6 Upper airway cough syndrome R05.8 Asthma with acute exacerbation J45.901 Asthma persistence: unspecified Asthma severity: moderate Allergic rhinitis with postnasal drip J30.9; R09.82
[2023-12-21] MEDS: LORATADINE 10 MG TAB PO SCH (08:39)
[2023-12-21] MEDS: MONTELUKAST SODIUM 10 MG TABLET PO SCH (08:39)
[2023-12-21] MEDS: FLUTICASONE PROPIONATE NA SPR 16 GM BTL NAE SCH (08:40)
[2023-12-21] MEDS: SPIRONOLACTONE 25 MG TAB PO SCH (08:40)
[2023-12-21] MEDS: FLUTICASONE/VILANTEROL 200/25MCG 14 PUFFS/INHALER INH SCH (08:40)
[2023-12-21] MEDS: guaiFENesin 600 MG TABCR PO SCH (08:40)
[2023-12-21] MEDS ORDERED: predniSONE 20 MG TAB PO SCH (09:00)
--- NOTE | 2023-12-21 17:26 | Discharge Summary ---
Date of Service December 21, 2023 Admission HPI Per Admitting Provider The patient is a 18-year-old female with a past medical history including allergic rhinitis with postnasal drip, chronic cough, asthma, upper airway cough syndrome, eosinophilia, COVID-19 12/18, influenza virus infection 11/09/2023. She reports that over [place] break while at home she was in the emergency department there several times, has just completed 2 courses of prednisone and antibiotics. After 3 days off of these medications, her breathing has worsened again. In the emergency department this evening [employer] testing was positive for rhinovirus. She reports some improvement in symptoms after emergency department treatment with hour-long DuoNeb, dexamethasone 10 mg IV, magnesium sulfate 1 g IV and normal saline 1 L IV fluid bolus Principal Diagnosis asthma exacerbation Discharge Exam gen aaox3 pleasant nad heent nc at mm lungs cta b/l but slightly coarse - no wheeze and overall good air entry no conversational dyspnea no accessory muscles good effort Discharge Data Allergies Allergy/AdvReac Type Severity Reaction Status Date / Time No Known Allergies Allergy Verified 12/19/23 21:11 Consultations 12/19/23 20:43 ED Decision to Admit Stat 12/20/23 05:03 Consult Pulmonology Routine Hospital Course (1) Asthma with acute exacerbation: Asthma with acute exacerbation/current rhinovirus infection-> bronchitis due to rhinovirus influenza 11-09-2023/COVID-19 history of eosinophilia/upper airway cough syndrome/allergic rhinitis- She just completed 2 courses of antibiotics and prednisone while at home over [place] break DuoNebs 4 times daily, and every 2 hours as needed added back her long-acting steroid and LABA on 12/20 Azithromycin 500 mg IV daily completed Methylprednisolone tapered oral prednisone on 12/21/2023 - and will finish w prednisone taper (40mg down to 0mg over 8 days starting 12/22 at home) wixela BID (250/50) Continue Flonase Continue Singulair 10 mg every morning, Loratadine 10 mg every morning, Saline nebulized medications bid for ~10 days (depending on progress) duonebs bid for ~10 days (depending on progress) albuterol prn Send [facility] testing for [place] panel and food panel pulmonary (kadri) involved in her care during hospitalization - he will follow up as outpt as well Plan stable for home steroid taper as above initiating maintenance management for asthma as above Total Time Total Time Spent Total Time Spent (In Minutes): >30 Discharge Plan Discharge Items Patient Disposition: Home - Self-Care Reason For Visit: ASTHMA EXACERBATION, RHINOVIRUS Discharge Diagnosis: asthma exacerbation (see below) Activity: Resume your previous activity Non-emergency contact: Primary Care Provider and Territory Manager Call non-emergency contact if: you have any medication questions and your symptoms worsen Follow-up/Referrals: [facility] [Primary Care Provider] - Diet: Regular Addtl Attending Provider Instructions: Asthma: - Fortunately her asthma is getting better. We will finish out a course of treatment with a tapering dose of [id number] mg for 2 days (starting tomorrow), then 30 mg for 2 days, 20 mg for 2 days, 10 mg for 2 days and then stop. The main point of the taper is to gradually lessen the "safety net" that the steroids provide. Once you get down to 20 mg or 10 mg days, if you start to feel worse, that would be when it is time to seek care before you are entirely off of the prednisone and feeling way worse/ended back in the ER. Hopefully none of this will be the case and you just gradually get better. - As we discussed, it would likely take several weeks for you to feel back to good is new. You will still likely feel a bit "like a sick patient" for the next week or so, and then even after the cough and shortness of breath/shortness of breath have improved, it will probably take until about your mom's birthday before you are not feeling excessively fatigued by everything. Do not necessarily look for day to day progress, rather check back to3 days at a timeif you are not seeing progress over 2 to 3 days, or you are clearly getting worse, then it is definitely time to seek care. Otherwise, progress can be frustratingly slow, but as long as you are feeling better, it is reasonable to stay the course. - Use the albuterol/Atrovent nebulizer, and the saline nebulizer twice a day until you are clearly doing betterthe prescriptions are for 10 days for each of those, but honestly you may not need it that long. Keep the albuterol rescue inhaler with youand do not hesitate to use it for shortness of breath/tightness in the chest/tight cough. As we discussed, once you are better (after about January 11), then you can also use how often you need your albuterol rescue inhaler as a "barometer" for how well you are doing with your asthma control. If you are needing it more than 3 times a week, we may need to escalate your baseline asthma control. Obviously as we discussed, needing it at the time of exercise is a bit differentI would really be looking more for when you needed suddenly for shortness of breath/tight cough/etc. - For managing your baseline asthma, right now we will be utilizing multiple medications to control the asthma/allergy angle of it: Wixela: This is an inhaler that has a long-acting version of albuterol in it, as well as an inhaled steroid. This usually does a pretty good job of keeping asthma in line. It is an inhaler that you should take twice a day whether you feel good, bad, or anything in betweenthe main point of it is to stay ahead of problems and prevent an asthma exacerbation. Albuterol: With you use it by inhaler or nebulizer, albuterol is a short acting medicine that helps open up your airways and reduce airway spasm. It is 1 that you can use every 4 hours if needed for shortness of breath/tightness in your chest/tight coughbut hopefully as you get better you will need it less and less. Between now and , it would not surprise me if you need it multiple times a day, but as you get further removed from the hospitalization, you should see the need for it to be less and less. Singulair: Singulair is very useful for helping to manage the allergy side of asthmait quells a major step in her body's allergic response. Fortunately, it is usually very well-toleratedit is a pill that you take once a day, and it is very rare to see anyone have side effects with it. As we discussed, it is totally okay to take it in the morning or eveningwhich ever is easier for you. Claritin: Less effective than the Singulair, but a similar ideaClaritin is an antihistamine that we will try to help control the overall allergic side of your asthma response. Since it is less effective than Singulair, as you are getting better, it will likely be one of the first that we can start to get rid of. Generally it is not sedatingso I would not really worry about making you tired. Sometimes that can happen, and if that is the case, then simply take it at bedtime instead. Flonase: The steroid nasal sprays really do a very effective job of controlling the upper airway allergy portion of your allergy/asthma responseI would have you use Flonase twice a day for the foreseeable future, and that hopefully over time as you get further removed from your exacerbations, and your asthma is under better control in general, hopefully it is something that we can start to knock down. Generally these kind of nasal sprays have minimal side effects to worry about. ---> With all of the above, keep a log of how well you are doing with your asthma control. When we rely on her memory, we often will miss a lot of detailsespecially whenever it is something that you have to keep track of every day like asthma control. To that end, I would write down how you are feeling/how your breathing/what you were able to do each day. I would also keep a running tally of how often you need your albuterol as a rescue inhaler. All of this will combined to help your regular doctors have a really good understanding of how well or how poorly controlled her asthma is so they can guide further treatment. As we discussed, given that this started after a mold exposure, and you have been hit with multiple respiratory infections ever since, I am not sold that this will be a lifelong "curse"rather it is probably a situation that has essentially come out of nowhere, has been fairly difficult to control because you have never really gotten a chance to recover, but likely once you are further and further removed from the mold exposure, and have less and less regular , contact with respiratory viruses, it is quite possible that the overall asthma situation will fade. If it does not, down the road it may be reasonable to see an territory manager for formal allergy testing, and/or have a good primary care doc/tailor's aide evaluate for autoimmune/immune deficiencies. Neither of these are likely to be needed, but if you are no longer on campus/no longer exposed to respiratory viruses all the time, and the situation does not seem to be fading, these would be reasonable avenues to pursue in the future. Pending Studies at Discharge: No Stand-Alone Forms: My [facility], Work/School Release, Smoking Cessation Medications and DC Order Prescriptions: New ipratropium-albuterol 0.5 mg-3 mg(2.5 mg base)/3 mL Solution For Nebulization 3 ml NEB BID Qty: 20 0RF montelukast 10 mg Tablet 10 mg PO QAM Qty: 30 0RF loratadine [Wal-itin] 10 mg Tablet 10 mg PO QAM Qty: 30 0RF sodium chloride 7 % Solution For Nebulization 4 ml NEB BIDR Qty: 20 0RF albuterol sulfate 90 mcg/actuation HFA aerosol inhaler 1 inh inhalation Q4H PRN (Reason: shortness of breath or wheezing) Qty: 8.5 0RF prednisone 10 mg tablet 10 mg PO DIRECTED Qty: 20 0RF Rx Instructions: 40mg x2 days, then 30mg x2 days, then 20mg x2days, then 10mg x2 days, then stop fluticasone propion-salmeterol [Wixela Inhub] 250-50 mcg/dose blister with device 1 inh inhalation BID Qty: 60 0RF Continued albuterol sulfate 90 mcg/actuation HFA aerosol inhaler 2 puff INHALATION Q4 PRN (Reason: Shortness Of Breath Or Wheezing) Qty: 8.5 3RF albuterol sulfate 0.63 mg/3 mL solution for nebulization 0.63 mg inhalation QID PRN (Reason: shortness of breath or wheezing) Qty: 90 3RF fluticasone propionate 50 mcg/actuation spray,suspension 2 spray INTRANASAL DAILY norgestimate-ethinyl estradiol [Seble] 0.25-35 mg-mcg Tablet 1 tab PO QPM spironolactone 50 mg Tablet 50 mg PO BID guaifenesin [Mucinex] 600 mg Tablet Extended Release 12hr 600 mg PO QAM Discharge Orders: Discharge Order (Routine); Ordered 12/21/23 Ordered By: Ronaldo Kramer/Other Patient Handouts: Understanding Asthma Triggers, Using a Nebulizer (Adult) Admission Data Admit Date/Time: 12/19/23 21:43 Attending Provider: Ronaldo Jennings Admit Provider: Dewayne Krueger Primary Care Provider: [facility] Other Providers: Dewayne Krueger; Ester Peralta Other Interventions: Discharge Summary Assessment (RN) Last Done: 12/21/23 14:36 Coding Level of Care Code 52461 INP/OBS DISCH >30 MIN Diagnoses Asthma with acute exacerbation J45.901 Asthma persistence: unspecified Asthma severity: moderate
[2023-12-22 16:36] LABS: Almond Allergen IgE <0.10 kU/L; Cashew IgE <0.10 kU/L; Codfish IgE <0.10 kU/L; Egg White Class 0; Egg White IgE <0.10 kU/L; Milk, Cow's Class 0; Milk, Cow's IgE <0.10 kU/L; Peanut IgE <0.10 kU/L; Salmon IgE <0.10 kU/L; Scallop IgE <0.10 kU/L; Shrimp Class 0; Shrimp IgE <0.10 kU/L; Tuna IgE <0.10 kU/L; Walnut IgE <0.10 kU/L; Wheat Class 0
[2023-12-26 14:02] LABS: Alternaria Class 0; Alternaria IgE <0.10 kU/L; Ash (White) Class 0; Ash (White) IgE <0.10 kU/L; Asperg Fumig Class 0; Asperg Fumig IgE <0.10 kU/L; Bermuda Grass Class 0; Bermuda Grass IgE <0.10 kU/L; Birch Class 0; Birch IgE <0.10 kU/L; Cat Dander Class 0; Cat Dander IgE <0.10 kU/L; Cladosporium IgE <0.10 kU/L; Cladosporium her Class 0; Cockroach Allergen Class 0; Cockroach IgE Ab <0.10 kU/L; Cottonwood Class 0; Cottonwood IgE <0.10 kU/L; D. farinae Class 0; D. farinae IgE <0.10 kU/L; D. pteronyssinus Class 0; D. pteronyssinus IgE <0.10 kU/L; Dog Dander Class 0; Dog Dander IgE <0.10 kU/L; Elm Class 0; Elm IgE <0.10 kU/L; Immunoglobulin IgE 9 kU/L (<OR=114); Maple (Box Elder) IgE <0.10 kU/L; Maple Class 0; Mountain Cedar Class 0; Mountain Cedar IgE <0.10 kU/L; Mouse Urine Protein Class 0; Mouse Urine Protein IgE <0.10 kU/L; Mugwort (W6) IgE <0.10 kU/L; Mugwort Class 0; Oak-White Class 0; Oak-White IgE <0.10 kU/L; Penic Notatum Class 0; Penic Notatum IgE <0.10 kU/L; Rough Pigweed Class 0; Rough Pigweed IgE <0.10 kU/L; Sheep Sorrel Class 0; Sheep Sorrel IgE <0.10 kU/L; Short Ragweed Class 0; Short Ragweed IgE <0.10 kU/L; Sycamore Class 0; Sycamore IgE <0.10 kU/L; Timothy Class 0; Timothy IgE <0.10 kU/L; Walnut Tree Class 0; Walnut Tree IgE <0.10 kU/L; White Mulberry Class 0; White Mulberry IgE <0.10 kU/L
== END 2023-12-21 15:38 | disposition home or self-care (01) ==
LOC: ED 17:41 → EDINP 17:41 → SUATTDRO 21:43 → 3E 22:41